=== PATIENT | female | born 1990 | race Caucasian/White ===

== ENCOUNTER 2020-04-24 14:30 | Inpatient (IN) | payer OTHER ==
[~2020-04-24] VITALS: Ht 162 cm; Wt 78.0 kg
[2020-04-24 15:00] VITALS: BP 120/66
[2020-04-24] MEDS ORDERED: OXYTOCIN 30 UNITS/LACT RINGERS 500 ML IV ONE (17:15)
[2020-04-24] MEDS ORDERED: METOCLOPRAMIDE HCL 5 MG/ML 2 ML VIAL IVP PRN (17:15)
[2020-04-24] MEDS ORDERED: RINGERS SOLUTION,LACTATED 1,000 ML IV PRN (17:15)
[2020-04-24] MEDS ORDERED: CITRIC ACID/SODIUM CITRATE 30 ML SOLUTION UDCUP PO PRN (17:15)
[2020-04-24] MEDS ORDERED: FentaNYL CITRATE-PF 100 MCG/2 ML VIAL IVP PRN (17:15)
[2020-04-24] MEDS ORDERED: METHYLERGONOVINE MALEATE 0.2 MG/ML VIAL IM PRN (17:15)
[2020-04-24] MEDS ORDERED: PREN-217 PO (17:21)
[2020-04-24 17:42] LABS: COVID AG,FIA SOURCE NASOPHARYNGEAL
[2020-04-24 18:32] LABS: BASOPHILS % (AUTO) 0.1 % (0.0-2.0); EOSINOPHILS % (AUTO) 0.2 % (1.0-6.0); HEMATOCRIT 36.2 % (36-46); HEMOGLOBIN 12.3 g/dL (12.0-16.0); LYMPHOCYTES # (AUTO) 1.9 K/uL (1.0-4.8); LYMPHOCYTES % (AUTO) 18.8 % (22.0-44.0); MEAN CORPUSCULAR HEMOGLOBIN 31.4 pg (26.0-34.0); MEAN CORPUSCULAR HGB CONC 33.9 G/dL (31.0-37.0); MEAN CORPUSCULAR VOLUME 93 fL (80-100); MONOCYTES # (AUTO) 0.5 K/uL (0.1-1.0); MONOCYTES % (AUTO) 4.5 % (2.0-9.0); NEUTROPHILS # (AUTO) 7.9 K/uL (1.8-7.7); NEUTROPHILS % (AUTO) 76.4 % (40.0-70.0); PLATELET COUNT (AUTO)-OB 169 K/uL (150-450); RED BLOOD CELL COUNT(AUTO) 3.91 MIL/uL (4.00-5.20); RED CELL DISTRIBUTION WIDTH 13.5 % (11.5-14.5)
[2020-04-24] MEDS: RINGERS SOLUTION,LACTATED 1,000 ML IV SCH ×2 (18:44→23:44)
[2020-04-24] MEDS ORDERED: OXYGEN THERAPY IH SCH (20:00)
[2020-04-25] MEDS ORDERED: OXYTOCIN 30 UNITS/LACT RINGERS 500 ML IV PRN (07:15)
[2020-04-25] MEDS: RINGERS SOLUTION,LACTATED 1,000 ML IV SCH ×2 (08:20→19:02)
[2020-04-25] MEDS ORDERED: LIDOCAINE/PF 2% 5 ML VIAL IM ONE (12:00)
[2020-04-25] MEDS ORDERED: EPHEDrine SULFATE 50 MG/ML VIAL IVP ONE (12:00)
[2020-04-25] MEDS ORDERED: OXYTOCIN 10 UNITS/ML VIAL IM ONE (12:00)
[2020-04-25] MEDS ORDERED: ONDANSETRON HCL 4 MG/2 ML VIAL IVP ONE (12:00)
[2020-04-25] MEDS ORDERED: ROPIVACAINE HCL/PF 0.2% 100 ML ED ONE (14:15)
[2020-04-25] MEDS ORDERED: ONDANSETRON HCL 4 MG/2 ML VIAL IVP PRN ×3 (14:30→21:15)
[2020-04-25] MEDS ORDERED: NALBUPHINE HCL 10 MG/ML VIAL IVP PRN (14:30)
[2020-04-25] MEDS ORDERED: ROPIVACAINE HCL/PF 0.2% 100 ML ED PRN (14:30)
[2020-04-25] MEDS ORDERED: DiphenhydrAMINE HCL 50 MG/ML VIAL IVP PRN ×3 (14:30→21:15)
[2020-04-25] MEDS ORDERED: LIDOCAINE/PF 2% 5 ML VIAL ONE (20:03)
[2020-04-25] MEDS ORDERED: MORPHINE SULFATE/PF 0.5 MG/ML 10 ML AMP ONE ×2 (20:03→22:07)
[2020-04-25] MEDS ORDERED: FentaNYL CITRATE-PF 100 MCG/2 ML VIAL ONE ×2 (20:03→22:08)
[2020-04-25] MEDS ORDERED: ACETAMINOPHEN 1000 MG/ISO-OSM 100 ML IV ONE (20:04)
[2020-04-25] MEDS ORDERED: FentaNYL CITRATE-PF 100 MCG/2 ML VIAL IVP PRN ×4 (21:15)
[2020-04-25] MEDS ORDERED: NALOXONE HCL 0.4 MG/ML VIAL IVP PRN (21:15)
[2020-04-25] MEDS ORDERED: MORPHINE SULFATE 2 MG/ML SYRINGE IVP PRN ×2 (21:15)
[2020-04-25] MEDS ORDERED: MORPHINE SULFATE 10 MG/ML SYRINGE IVP PRN ×2 (21:15)
[2020-04-25] MEDS ORDERED: DEXAMETHASONE SOD PHOS 4 MG/ML VIAL IVP PRN (21:15)
[2020-04-25] MEDS ORDERED: MEPERIDINE-PF 25 MG/ML VIAL IVP PRN (21:15)
[2020-04-25] MEDS ORDERED: RINGERS SOLUTION,LACTATED 1,000 ML IV SCH (21:30)
[2020-04-25] MEDS ORDERED: OXYTOCIN 30 UNITS/LACT RINGERS 500 ML IV ONE (21:30)
[2020-04-25] MEDS ORDERED: LANOLIN 7 GM OINTMENT TP PRN (21:30)
[2020-04-26] MEDS: ACETAMINOPHEN 1000 MG/ISO-OSM 100 ML IV SCH ×2 (05:23→14:41)
[2020-04-26 06:41] LABS: BASOPHILS % (AUTO) 0.1 % (0.0-2.0); EOSINOPHILS % (AUTO) 0.1 % (1.0-6.0); HEMOGLOBIN 10.5 g/dL (12.0-16.0); LYMPHOCYTES # (AUTO) 1.7 K/uL (1.0-4.8); LYMPHOCYTES % (AUTO) 13.8 % (22.0-44.0); MEAN CORPUSCULAR HEMOGLOBIN 31.7 pg (26.0-34.0); MEAN CORPUSCULAR VOLUME 93 fL (80-100); MONOCYTES # (AUTO) 0.6 K/uL (0.1-1.0); MONOCYTES % (AUTO) 4.6 % (2.0-9.0); NEUTROPHILS # (AUTO) 10.3 K/uL (1.8-7.7); NEUTROPHILS % (AUTO) 81.4 % (40.0-70.0); PLATELET COUNT (AUTO)-OB 131 K/uL (150-450); RED BLOOD CELL COUNT(AUTO) 3.32 MIL/uL (4.00-5.20); RED CELL DISTRIBUTION WIDTH 13.8 % (11.5-14.5)
[2020-04-26] MEDS ORDERED: OXYGEN THERAPY IH SCH ×3 (08:00)
[2020-04-26] MEDS: MAGNESIUM HYDROXIDE SUSPENSION 30 ML UDCUP PO SCH ×2 (08:25→22:51)
[2020-04-26] MEDS: RINGERS SOLUTION,LACTATED 1,000 ML IV SCH (08:52)
[2020-04-26] MEDS: OxyCODONE HCL/ACETAMINOPHEN 5-325 MG TABLET PO PRN (14:09)
[2020-04-26] MEDS: IBUPROFEN 800 MG TABLET PO PRN (22:51)
[2020-04-27] MEDS: MAGNESIUM HYDROXIDE SUSPENSION 30 ML UDCUP PO SCH ×2 (08:29→20:29)
[2020-04-27] MEDS: IBUPROFEN 800 MG TABLET PO PRN ×2 (08:30→20:29)
[2020-04-27] MEDS: OxyCODONE HCL/ACETAMINOPHEN 5-325 MG TABLET PO PRN ×2 (14:37→20:29)
[2020-04-28] MEDS: IBUPROFEN 800 MG TABLET PO PRN ×2 (02:25→09:24)
[2020-04-28] MEDS: OxyCODONE HCL/ACETAMINOPHEN 5-325 MG TABLET PO PRN ×2 (05:42→12:35)
[2020-04-28] MEDS ORDERED: FERR-89 PO (10:05)
[2020-04-28] MEDS ORDERED: IBUP-2071 PO (10:06)
[2020-04-28] MEDS ORDERED: ACET-2865 PO (10:06)
[2020-04-28] MEDS ORDERED: DOCU-275 PO (10:07)
== END 2020-04-28 12:35 | disposition home or self-care (01) | DRG 788 ==
LOC: 4S 14:30 → OBSVTOIN 17:35 → 4S 04-26 02:22
PROVIDERS: ADMIT Obstetrics & Gynecology Obstetrics; ATTEND Obstetrics & Gynecology Obstetrics
PROC: 10D00Z1 Extraction of Products of Conception, Low, Open Approach (ICD-10-PCS; principal; 2020-04-25)
DX: O76 Abnormality in fetal heart rate and rhythm complicating labor and delivery (principal); Z20.828 Contact with and (suspected) exposure to other viral communicable diseases; Z37.0 Single live birth; Z3A.37 37 weeks gestation of pregnancy
CPT/HCPCS: 86850; 86900; 86901; 87426; 89060; 99219; J0131; J2270; J2274; J2405; J2590; J2765; J2795; J3010; J3490; J7120